=== PATIENT | female | born 1960 | race Caucasian/White ===

== ENCOUNTER 2019-10-04 12:52 | Inpatient (IN) | payer OTHER, SELFPAY ==
[2019-09-20 09:39] VITALS: BP 141/88; PULSE 73; RESP 16; TEMP 36.7; O2SAT 100; BMI 24.1
--- NOTE | 2019-10-01 15:33 | HP_ITS ---
DATE OF SERVICE: ADMIT DIAGNOSIS: Degenerative joint disease, left hip. HISTORY OF PRESENT ILLNESS: The patient is a 58-year-old female patient of Dr. oMraes , who presents today for a left total hip arthroplasty. She has been having pain in the hip for over a year now. She had a right hip done by Dr. Frey in 2017 and is doing very well. She has advanced severe arthritis of the left hip. She has continued symptoms. She has been taking [id number] anti-inflammatories either Aleve or Advil on a daily basis without improvement of her symptoms. She has reached a point where she feels she would rather proceed with total hip arthroplasty rather continuing nonsurgical treatment. PAST MEDICAL HISTORY: She does have a history of glaucoma, depression, GERD. CURRENT MEDICATIONS: She takes: 1. Bupropion XL 300 mg daily. 2. Fluoxetine 20 mg daily. 3. Omeprazole 20 mg daily. 4. Prozac 10 mg daily. 5. Wellbutrin XL 150 mg daily. ALLERGIES: SHE HAS NO KNOWN DRUG ALLERGIES. FAMILY HISTORY: Significant for skin cancer and coronary artery disease. SOCIAL HISTORY: She stopped smoking. She smoked 1 pack a day for 30 years, but has recently quit. PHYSICAL EXAMINATION: VITAL SIGNS: She is 5 feet 4.5 inch, 144 pounds. Other vital signs per nursing on the morning of surgery. HEENT: Grossly normal. LUNGS: Clear bilaterally. HEART: Regular rate and rhythm. EXTREMITIES: She walks with a mild limp. Her left hip flexes to 110, which causes her anterolateral pain radiating to the greater trochanter. Internal rotation is 0, external rotation of 30, with pain in the groin. Stinchfield maneuver causes her pain to the anterolateral hip. No tenderness over the greater trochanter. She has normal abduction strength in lateral position. No swelling in the left lower extremity. 2+ dorsalis pedis and posterior tibial pulse. IMAGING DATA: X-rays demonstrate advanced arthritis of the left hip with flattening of the femoral head and cystic changes in the femoral head and acetabular component. IMPRESSION: The patient has severe arthritis in the left hip with continued symptoms. Again, she would like to proceed with total arthroplasty. Surgical procedure as well as risks and complications were discussed. All questions were answered and we will proceed. The patient will see Dr. Moraes for presurgical clearance. The patient will avoid any aspirin, ibuprofen products 1 week prior to surgery. When we did her surgery last time, we used full aspirin and portable SCDs for DVT prophylaxis and the patient would like to do this again and she still has the SCDs. Her nasal swab did grow oxacillin-sensitive Staph aureus. She has been decolonizing as of 09/24. Chem panel is all within normal limits. Creatinine 0.90. Her cotinine was negative. Hemoglobin is 12.5, platelets are 439. D I MT: Danny
[2019-10-04] VITALS (12 sets, daily range): BP systolic 95–158; BP diastolic 49–82; PULSE 73–100; RESP 10–20; TEMP 36.2–37.2; O2SAT 93–100; BMI 24.1
--- NOTE | ~2019-10-04 | XR_ITS ---
XR surgery orthopedic 10/04/2019 11:40 Indication: Left hip arthroplasty Procedure: 2 fluoroscopic images of the left hip. 61 seconds of fluoroscopy. Comparison: No prior studies for comparison. Findings: There is a left total hip arthroplasty with the distal femoral component isn't completely v isualized. There is anatomic alignment. No gross fracture or malalignment. Impression: 1: Status post left total hip arthroplasty in anatomic alignment. Reviewed, dictated and finalized at location A. R MAKER Impression: 1: Status post left total hip arthroplasty in anatomic alignment.
--- NOTE | ~2019-10-04 | XR_ITS ---
EXAMINATION: XR hip LT 1V w AP pelvis DATE: 10/04/2019 11:40 INDICATION: Left hip arthroplasty. Postop. TECHNIQUE: An anteroposterior view of the pelvis and single view of left hip were obtained. COMPARISON: Pelvis and right hip radiographs 07/09/2017 FINDINGS: There are bilateral total hip arthroplasties in near-anatomic alignment. No fracture. There is gas in the left perihilar soft tissues, consistent with recent surgery. A surgical drain is noted . IMPRESSION: 1. New total left hip arthroplasty in near-anatomic alignment. Reviewed, dictated and finalized at location A. NT SUPPORT ASSOCIATE
[2019-10-04] MEDS: LACTATED RINGERS 1,000 ML 30 ML IV CONT ×2 (07:10→11:42)
--- NOTE | 2019-10-04 07:15 | WPDANESEPPF ---
Anes - Initial Pre Proc Eval Procedure: Operation Date: 10/04/19 07:30 Proposed Procedures p Left Total Hip Arthroplasty, Anterior Approach - Shaw Frey MD Date/Time: 10/04/19 07:15 Surgeon: Shaw Frey MD Pre Op Diagnosis: OA Left Hip Patient Data Age: 58 Gender: F Height: 1.65 m Weight: 65.8 kg Last Vital Signs Temp 36.7 C 09/20/19 09:39 Pulse 73 09/20/19 09:39 Resp 16 09/20/19 09:39 BP 141/88 H 09/20/19 09:39 Pulse Ox 100 09/20/19 09:39 Allergies Allergy/AdvReac Type Severity Reaction Status Date / Time No Known Drug Allergies Allergy Unknown NONE Verified 09/20/19 09:33 Home Medications Medication Instructions Recorded Confirmed Type bupropion HCl 300 mg PO QAM 09/20/19 09/20/19 History calcium carbonate-vitamin D3 1 cap PO DAILY 09/20/19 09/20/19 History [Calcium 600 + D(3)] fluoxetine 20 mg PO DAILY 09/20/19 09/20/19 History ibuprofen 400 mg PO Q4-6H PRN 09/20/19 09/20/19 History latanoprost 1 drp OPHTHALMIC (EYE) DAILY 09/20/19 09/20/19 History multivitamin [Daily Multiple] 1 tablet PO DAILY 09/20/19 09/20/19 History Patient hx anesthesia problems: none Family hx anesthesia problems: none PMFSH Past Medical History Medical History (Updated 10/04/19 @ 07:16 by Jimy Trevino MD) Anxiety Depression Glaucoma Social History Social History Gender identity (if verbalized by the patient): Female Anes - Eval Final PreProcedure Day of Procedure 10/04/19 07:15 Patient weight: normal Heart: regular rate and rhythm Lungs: clear to auscultation and normal air movement Airway: Mallampati scale class II Neurological: alert and oriented Last oral intake: >/= 8 hours ASA classification: II Emergent: no Anesthetic plan: proceed Anesthesia type and monitoring: general LMA and ETT Informed Consent: The patient's anesthetic plan and its attendant risks and benefits were discussed with the patient/family/POA. Questions were solicited and answers provided to the satisfaction of the patient/family/POA.
--- NOTE | 2019-10-04 07:24 | WPDHPUPDATE1 ---
History and Physical Update Update Date/Time: 10/04/19 07:24 History and Physical has been reviewed, including an updated exam of the patient. There are NO changes in the patient's condition. Risks, benefits, and alternatives have been discussed and questions answered. Patient agrees to proceed with procedure.
[2019-10-04] MEDS: ceFAZolin 2 GM/D5W 50 ML 2 GM/50 ML BAG IVPB (07:40)
[2019-10-04] MEDS: ceFAZolin SODIUM 1 GM VIAL 3 GM IRRIGATION (08:30)
[2019-10-04] MEDS: ceFAZolin SODIUM 1 GM VIAL IV PUSH (11:08)
--- NOTE | 2019-10-04 11:54 | PM.PROC ---
Procedure Note - Detailed Date of procedure: 10/04/19 Pre-op diagnosis: OA Left Hip Post-op diagnosis: same Procedure performed: Patient brought the operating room and general anesthesia was administered. the left hip was prepped and draped in usual fashion after per seated in position on the OSI Araceli table boots well-padded. She received 2 g of Ancef weight based vancomycin 1 g of IV tranexamic acid preoperatively. SCDs were placed on the legs and running. A 10 cm longitudinal incision was made starting about 3 cm lateral to the ASIS. Dissection was carried down to the fascia over the tensor fascia ponhco which was longitudinally incised and elevated off the anterior 1/2 the tensor fascia poncho muscle. Interval between the rectus femoris and tensor fascia poncho developed. Crossing branches of the ascending lateral circumflex vessels were isolated ligated with suture divided. ileal capsular S elevated off the anterior capsule retractor placed. The leg abducted internally rotated and the gluteus minimus elevated off the lateral capsule. leg was placed back in neutral position and standard anterior capsulotomy performed femoral neck osteotomy was made according to preoperative templating. A napkin ring of bone was removed and the head removed. fit measured 46 mm in diameter. It was severely hypertrophic. The acetabulum was and inspected. There was some deficiency of the posterior superior acetabular rim. I did not see fragmentation there was apparent resorption there. Also there were 2 1 cm cyst communicating with the subchondral bone in the joint in the anterior superior acetabulum. these were curetted. The labrum was excised. the leg was externally rotated and extended and the lateral capsular release was completed. Conjoined tendon was recessed just lateral to the osteotomy. The piriformis was left attached. The leg was placed in the neutral position. the acetabulum was carefully prepared. We medial eyes to the medial wall and reamed to 47 mm. This did not quite get to the periphery of the 48 mm Reamer was used. the 48 trial had acceptable fit. we medial eyes and superior eyes the acetabulum a few mm deeper with the 47 mm Reamer. The bone present was of very good quality. We chose the G 748 mm cup and impacted that such that the anterior rim was a mm into the anterior wall. This left the posterior superior rim about 67 mm prominent but obtained a good press fit. a single screw was placed and the superior ilium which obtained excellent purchase. We used extra long screw to enhance fixation. I did not think the screws posterior would gain much fixation in the small area of bone present there. The insertion hole cap was placed and we impacted the 48 mm 0? liner 32 mm inner diameter. The leg was extended externally rotated and we broached up to a size 6 the size we used on the other side. Preoperative templating suggested that the size would be a bit larger and indeed under fluoroscopic examination with the +0 head we were little bit loose put we had equal leg lengths at this time. I felt we could go up in size. We calcar planed the neck to that level and went up to a size 8 taper lock broach which we could countersink about 2 and 0.5 mm below the neck cut. We trialed with the +3 which had appropriate stability and appropriate leg lengths perhaps a mm short. We anticipated the real stem would sit little bit proud. We chose the standard offset size 8 taper lock stem and impacted it into position and a came to rest about a 0.5 mm below the calcar neck cut. I trialed and the 0 was too loose but the +3 was stable and the leg lengths were very close perhaps length in 2 mm or 3. The +3 titanium sleeve was mated with the 32 mm ceramic head which was impacted on the clean and dry trunnion. The wound was again irrigated with antibiotic solution. Gloves were changed multiple times for the procedure hip was reduced stability reconfirmed. The capsule was allowed to rest in sit
--- NOTE | 2019-10-04 12:39 | SUR.PHASEI ---
1235 updated family in waiting room.
--- NOTE | 2019-10-04 13:03 | ADMGEN ---
This patient, Adele Jaffe, was admitted to 3 Med Surg Room 310-01 @ 1303. Patient/family oriented to hospital policies and general routines including ID bracelet, bed and alarms, visiting hours, pain management, procedures, bathroom and other care routines, personal items, smoking policy, room service/diet, and visiting hours. Valuables list has been completed. Information on how to activate the Rapid Response Team has been discussed. Patient/Family are encouraged to report perceived risks to care and to ask questions if they do not understand what they are told or what they should do.
[2019-10-04 13:18] LABS: Hematocrit 32.1 % (37.0-47.0); Hemoglobin 10.5 g/dL (12.0-15.0)
[2019-10-04] MEDS: ACETAMINOPHEN 500 MG TABLET 1000 MG PO ×2 (13:26→18:05)
--- NOTE | 2019-10-04 20:00 | WPDCN ---
Assessment and Plan Assessment and plan (1) Osteoarthritis of left hip: Code(s): M16.12 - Unilateral primary osteoarthritis, left hip Status: Acute Assessment and Plan: Wound care and pain control will be deferred to Dr. Frey. DVT prophylaxis per Dr. Frey. (2) Depression with anxiety: Code(s): F41.8 - Other specified anxiety disorders Status: Acute Assessment and Plan: No acute issues. Continue home medications. (3) Glaucoma: Code(s): H40.9 - Unspecified glaucoma Status: Acute Assessment and Plan: Continue eyedrops. HPI Data of Consult Date/Time: 10/04/19 23:00 Requesting Physician: Shaw Frey MD Primary Care Provider: Marin Moraes, Consult Narrative Narrative: Adele Jaffe is a 58 year old female with osteoarthritis, glaucoma, depression, and anxiety whom the hospitalist service has been consulted for postoperative medical management. She has osteoarthritis of both hips, is status post right total hip arthroplasty a couple of years ago with good results. Unfortunately, she continues to have pain in her left hip despite conservative outpatient treatment. Her surgery was performed under general anesthesia with no immediate complications documented an estimated blood loss of 300 milliliters. Postoperatively, her pain is well controlled, rated 2/10 at the time my evaluation. She has been up to the chair and walking the halls with a walker, and has been doing well. The only complaint she has at the time my evaluation is some mild sinus congestion and postnasal drip. She denies fever, chills, sweats, chest pain, shortness of breath, nausea, and vomiting. No paresthesias, skin color, or temperature changes distal to the surgical site. Review of Systems Review of Systems: Narrative: No recent cold or flu symptoms. No chest pain or shortness of breath. No history of cardiac disease. No history of venous thromboembolism. Except as documented, all other systems were reviewed and are negative. [facility] Past Medical History Medical History (Updated 10/04/19 @ 23:12 by Yvonne Mccarthy PA-C) Depression with anxiety GERD (gastroesophageal reflux disease) Glaucoma Osteoarthritis Surgical History Surgical History (Updated 10/04/19 @ 23:10 by Yvonne Mccarthy PA-C) Status post right foot surgery Status post total replacement of both hips Family History Family History (Updated 10/04/19 @ 23:11 by Yvonne Mccarthy PA-C) Father Melanoma Mother Arrhythmia Social History Social History (Updated 10/04/19 @ 23:11 by Yvonne Mccarthy PA-C) Social History: Patient lives in [place] with her , whom she designates as her surrogate decision maker. 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 She smoked up to a pack of cigarettes per day and quit 7 years ago. She drinks alcohol socially and in moderation. No drug use. Smoking packs per day: 1 Smoking cigarettes per day: 20.0 Smoking status: Former smoker Alcohol intake: current Drinks per week: 4 Substance use: never Gender identity (if verbalized by the patient): Female Spiritual care concerns: No Agree to blood products: Yes Meds Home Medications and Allergies Home Medications Medication Instructions Recorded Confirmed Type bupropion HCl 300 mg PO QAM 09/20/19 09/20/19 History calcium carbonate-vitamin D3 1 cap PO DAILY 09/20/19 09/20/19 History [Calcium 600 + D(3)] fluoxetine 20 mg PO DAILY 09/20/19 09/20/19 History ibuprofen 400 mg PO Q4-6H PRN 09/20/19 09/20/19 History latanoprost 1 drp OPHTHALMIC (EYE) DAILY 09/20/19 09/20/19 History multivitamin [Daily Multiple] 1 tablet PO DAILY 09/20/19 09/20/19 History Allergies Allergy/AdvReac Type Severity Reaction Status Date / Time No Known Drug Allergies Allergy Unknown NONE Verified 09/20/19 09:33 Vital Signs Vital Signs - 24 hr 10/04/19 07:00 10/04/19
[2019-10-04] MEDS: ASPIRIN 325 MG ENTERIC TABLET PO (21:12)
[2019-10-04] MEDS: SENNA/DOCUSATE SODIUM TABLET 1 TAB PO (21:12)
[2019-10-04] MEDS: FAMOTIDINE 20 MG TABLET PO (21:12)
[2019-10-05] MEDS: ACETAMINOPHEN 500 MG TABLET 1000 MG PO ×2 (00:03→05:13)
[2019-10-05 02:00] VITALS: BP 113/67; PULSE 97; RESP 16; TEMP 37.1; O2SAT 97
[2019-10-05] MEDS: MORPHINE SULFATE 2 MG/ML INJ IV PUSH (05:23)
--- NOTE | 2019-10-05 06:16 | PM.PNORT ---
Progress Note: A&P Additional Plan POD 1 alert avss, wd-dry NVI, was walking in halls yesterday 50% WB , doing well, having more pain overnight and this am, labs-pending, pt is taking 2 pain pills at a time, will get celebrex this am which will help, plan to send home later today Subjective Subjective Date/Time Seen: 10/05/19 06:16 Objective Data Vital Signs Vital Signs: Vital Signs - 24 hr 10/04/19 07:00 10/04/19 11:42 10/04/19 11:55 Temperature 36.8 C 36.5 C Pulse Rate 100 81 82 Respiratory Rate 18 14 12 Blood Pressure 158/82 H 100/52 L 104/61 Pulse Oximetry 100 100 100 10/04/19 12:10 10/04/19 12:26 10/04/19 12:40 Temperature Pulse Rate 81 77 84 Respiratory Rate 14 10 L 13 Blood Pressure 106/76 95/49 L 122/68 Pulse Oximetry 93 98 98 10/04/19 13:00 10/04/19 13:15 10/04/19 13:45 Temperature 36.2 C L 36.4 C L Pulse Rate 77 73 76 Respiratory Rate 17 17 19 Blood Pressure 118/55 L 113/50 L 106/53 L Pulse Oximetry 100 100 99 10/04/19 14:45 10/04/19 18:40 10/04/19 22:00 Temperature 36.3 C L 36.9 C 37.2 C Pulse Rate 75 86 75 Respiratory Rate 16 19 20 Blood Pressure 111/60 117/51 L 113/59 L Pulse Oximetry 100 100 100 10/05/19 02:00 Temperature 37.1 C Pulse Rate 97 Respiratory Rate 16 Blood Pressure 113/67 Pulse Oximetry 97 Intake/Output Intake/Output: Intake & Output 10/02/19 10/03/19 10/04/19 10/05/19 23:59 23:59 23:59 23:59 Intake Total 770 200 Output Total 1050 1800 Balance -280 -1600 Meds/Results Medications: Active Medications Generic Name Dose Route Start Last Admin Trade Name Freq PRN Reason Stop Dose Admin Acetaminophen 1,000 mg 10/04/19 13:00 10/05/19 05:13 Tylenol Tablet PO 1,000 mg Q6HR POLLO Administration Al Hydrox/Mg Hydrox/Simethicone 30 ml 10/04/19 12:52 Mylanta PO Q6H PRN Indigestion Aspirin 325 mg 10/04/19 21:00 10/04/19 21:12 Aspirin Ec PO 325 mg Q12HR [facility] Administration Bupropion HCl 300 mg 10/05/19 09:00 Wellbutrin Xl (24 Hr) PO QAM [facility] Calcium Carbonate 500 mg 10/05/19 09:00 Os-Ashutosh 500 +D Tablet PO QAM [facility] Celecoxib 200 mg 10/05/19 09:00 Celebrex PO DAILY [facility] Famotidine 20 mg 10/04/19 21:00 10/04/19 21:12 Pepcid PO 20 mg Q12HR [facility] Administration Fluoxetine HCl 20 mg 10/05/19 09:00 Prozac PO DAILY [facility] Hydroxyzine HCl 50 mg 10/04/19 12:52 Atarax Tablet PO Q4H PRN Itching Vancomycin HCl 1,000 mg in 250 mls @ 250 mls/hr 10/04/19 19:00 10/04/19 19:23 Vancomycin 1,000 Mg/D5w 250 Ml IVPB 10/05/19 07:59 Infused Q12H [facility] Infusion Cefazolin Sodium 1 gm in 50 mls @ 100 mls/hr 10/04/19 16:00 10/05/19 00:03 Ancef 1 Gm/D5w 50 Ml Pm IVPB 10/05/19 08:29 100 mls/hr Q8H [facility] Administration Latanoprost 1 drop 10/05/19 09:00 Xalatan EACH EYE DAILY [facility] Magnesium Hydroxide 30 ml 10/04/19 12:52 Milk Of Magnesia PO BID PRN Constipation Morphine Sulfate 2 mg 10/04/19 12:52 10/05/19 05:23 Morphine Sulfate Inj IV PUSH 2 mg Q3H PRN Administration Pain Rated 7-10 Multivitamins Therapeutic 1 tablet 10/05/19 09:00 Multivitamins Therapeutic(*Bkc PO DAILY [facility] Naloxone HCl 0.1 mg 10/04/19 12:52 Narcan IV PUSH Q2M PRN Opiate Reversal Ondansetron HCl 4 mg 10/04/19 12:52 Zofran Inj IV PUSH Q4H PRN Nausea And Vomiting Oxycodone HCl 5 mg 10/04/19 13:00 10/05/19 04:30 Roxicodone Ir Tablet PO 5 mg Q4HR POLLO Administration Oxycodone HCl 5 mg 10/04/19 12:52 10/05/19 04:31 Roxicodone Ir Tablet PO 5 mg Q4H PRN Administration Pain Rated 4-6 Polyethylene Glycol 17 gm 10/05/19 09:00 Miralax PO QAM POLLO Senna/Docusate Sodium 1 tab 10/04/19 21:00 10/04/19 21:12 Senokot S PO 1 tab HS POLLO Administration Radiology Results: ITS Impressions Hip/Pelvis X-Ray 10/04/19 12:16 IMPRESSION: 1. New total left h
[2019-10-05 06:29] VITALS: BP 124/63; PULSE 90; RESP 20; TEMP 36.8; O2SAT 100
[2019-10-05 07:02] LABS: Blood Urea Nitrogen 12 mg/dL (7-17); Carbon Dioxide 27 mmol/L (22-30); Chloride 97 mmol/L (98-107); Estimated CRCL calculation 67 ml/min; Estimated Glomerular Filt Rate > 60; Glucose 103 mg/dL (65-105); Potassium 3.8 mmol/L (3.4-5.0); Sodium 133 mmol/L (137-145)
[2019-10-05] MEDS: buPROPion HCL XL (24 HR) 150 MG TABCR 300 MG PO (08:11)
[2019-10-05] MEDS: FAMOTIDINE 20 MG TABLET PO (08:11)
[2019-10-05] MEDS: CELECOXIB 200 MG CAPSULE PO (08:11)
[2019-10-05] MEDS: FLUOXETINE HCL 20 MG CAP PO (08:11)
[2019-10-05] MEDS: polyethylene glycoL 3350 17 GM POWD.PACK PO (08:11)
[2019-10-05] MEDS: LATANOPROST 0.005% OP SOLN 2.5 ML BTL 1 DROP EACH EYE (08:12)
[2019-10-05] MEDS: MULTIVITAMINS THERAPEUTIC TAB (*BKC) 1 TABLET PO (08:12)
[2019-10-05] MEDS: ASPIRIN 325 MG ENTERIC TABLET PO (09:26)
--- NOTE | 2019-10-05 09:34 | P.PNAN_ITS ---
Anes - Prog Note Post-Op Date/Time: 10/05/19 09:34 Cardiovascular status: normal Respiratory status: normal Airway patency: baseline Mental status: baseline Post-Op hydration status: normal Vital Signs: Last Vital Signs Temp 36.8 C 10/05/19 06:29 Pulse 90 10/05/19 06:29 Resp 20 10/05/19 06:29 BP 124/63 10/05/19 06:29 Pulse Ox 100 10/05/19 06:29 I/O: Intake & Output 10/04/19 10/05/19 10/05/19 23:59 07:59 15:59 Intake Total 420 200 50 Output Total 350 1800 Balance 70 -1600 50 Laboratory Tests 10/05/19 05:40 10/04/19 10/05/19 10/05/19 13:11 05:40 05:40 WBC Pending RBC Pending Hgb 10.5 L Pending Hct 32.1 L Pending MCV Pending MCH Pending MCHC Pending RDW Pending Plt Count Pending MPV Pending Immature Gran % (Auto) Pending Neut % (Auto) Pending Lymph % (Auto) Pending [place] % (Auto) Pending Eos % (Auto) Pending Baso % (Auto) Pending Lymph # (Auto) Pending [place] # (Auto) Pending Eos # (Auto) Pending Baso # (Auto) Pending Abs Immat Gran (auto) Pending Absolute Neuts (auto) Pending Absolute Nucleated RBC Pending Nucleated RBC % Pending Sodium 133 L Potassium 3.8 Chloride 97 L Carbon Dioxide 27 BUN 12 D Creatinine 0.70 Estim Creat Clear Calc 67 Estimated GFR > 60 Glucose 103 Calcium 9.0 Post-procedural complaints: none Patient Feedback: Patient satisfied with anesthetic care.
--- NOTE | 2019-10-05 09:45 | PM.IMPN ---
Progress Note: A&P Assessment and Plan (1) Osteoarthritis of left hip: Code(s): M16.12 - Unilateral primary osteoarthritis, left hip Status: Acute Assessment and Plan: POD1 left hip replacement. Patient doing well Post-operatively. Patient possibly discharged today per Dr. Frey Wound care, post op, DVT and pain controlwill be deferred to Dr. Frey. (2) Depression with anxiety: Code(s): F41.8 - Other specified anxiety disorders Status: Acute Assessment and Plan: No acute issues. Continue home medications. (3) Glaucoma: Code(s): H40.9 - Unspecified glaucoma Status: Acute Assessment and Plan: No acute issues Continue eyedrops. Subjective Date/time seen: 10/05/19 09:45 This is a Hospitalist Consult Progress Note Interval history: Patient is a 58 yo F with history of depression/anxiety, GERD, glaucoma, and OA POD1 left hip replacement per Dr. Weir. Patient is doing well post operatively. She had some pain this morning in her left hip and lower leg, but has since improved. Did well with PT/OT today. No other complaints. Ready to leave to day. Patient denies f/c/ns, headaches, dizziness, lightheadedness, changes in vision/hearing, cp/palpitations, sob/cough, abd pain, n/v/d/c, dysphagia, dysuria, hematuria, cloudy urine, pain behind b/l calves, swelling, s/sx of stroke. Review of Systems Review of Systems: All systems reviewed & are unremarkable except as noted in HPI and below Exam Narrative: Exam Narrative: Patient lying in semi-mcclendon's position at time of visit. Just finished PT/OT session. Const: General: no acute distress, well developed and alert Nutritional Appearance: well nourished Orientation/consciousness: patient oriented x3 HENMT: Head: normocephalic and atraumatic General nose exam: Normal external nose present and Normal nares present Face and sinus: face symmetric Mouth: Yes lip normal, Yes tongue normal and Yes moist mucous membranes Teeth and gingiva: dentition normal Throat: posterior oropharynx normal Eyes: General: appearance normal, both eyes and all related structures Sclera: sclerae normal Pupils: Equal, round and reactive pupils present EOM: EOMs intact bilaterally Neck: Neck: trachea midline, supple and no JVD Resp: Effort & Inspection: normal respiratory effort Auscultation: clear to auscultation bilaterally and diminished lung sounds Cardio: Rate: regular rate and not bradycardic Rhythm: regular rhythm Heart sounds: no gallops, no murmurs and no rubs GI: Inspection: non-distended GI Palp: No abdominal tenderness Auscultation: normal bowel sounds Neuro: General: patient oriented x3, moves all extremities and no focal motor deficits Speech: normal speech Extrem: Right lower extremity: no edema Left lower extremity: no edema Other: No calf ttp/swelling. Left hip incision sites bandaged with ice pack. no drainage noted Psych: Mental Status: mental status grossly normal Affect: normal affect Objective Data Vital Signs Vital Signs: Vital Signs - 24 hr 10/04/19 11:42 10/04/19 11:55 10/04/19 12:10 Temperature 97.7 F Pulse Rate 81 82 81 Respiratory Rate 14 12 14 Blood Pressure 100/52 L 104/61 106/76 Pulse Oximetry 100 100 93 10/04/19 12:26 10/04/19 12:40 10/04/19 13:00 Temperature 97.1 F L Pulse Rate 77 84 77 Respiratory Rate 10 L 13 17 Blood Pressure 95/49 L 122/68 118/55 L Pulse Oximetry 98 98 100 10/04/19 13:15 10/04/19 13:45 10/04/19 14:45 Temperature 97.5 F L 97.3 F L Pulse Rate 73 76 75 Respiratory Rate 17 19 16 Blood Pressure 113/50 L 106/53 L 111/60 Pulse Oximetry 100 99 100 10/04/19 18:40 10/04/19 22:00 10/05/19 02:00 Temperature 98.5 F 99 F 98.7 F Pulse Rate 86 75 97 Respiratory Rate 19 20 16 Blood Pressure 117/51 L 113/59 L 113/67 Pulse Oximetry 100
--- NOTE | 2019-10-05 10:23 | DS_ITS ---
DATE OF DISCHARGE: 10/05/2019 DIAGNOSIS: Degenerative joint disease, left hip. HOSPITAL COURSE: The patient is a 58-year-old female who underwent anterior left total hip arthroplasty by Dr. Frey on October 04, 2019, who underwent the procedure without any complications. Postoperatively, she has been afebrile. Vital signs have been stable. Neurovascularly, she was intact. She was up walking on the day of surgery. She is 50% weightbearing due to some bone deficiencies in the acetabular bone. She did well; however, the block from surgery wore off. She is having increasing pain. She is on oxycodone, scheduled Tylenol, and Celebrex once a day for pain. She is on aspirin and portable SCDs for DVT prophylaxis postoperatively. Her drain is out. She had minimal output in the drain overnight. Wound is dry. Neurovascularly, she is intact. She is comfortable on postop day 1. We will see how she does with therapy today. The plan will be to discharge her home later today on October 05, 2019. She will go home on a regular diet. Again, she will use her SCDs for 24 hours a day for 3 weeks. She will be on an enteric-coated aspirin twice a day for 6 weeks total. The patient was advised to keep the leg elevated and which she was reminded multiple times when I spoke to her on the morning postop day 1 that she needs to be 50% weightbearing with a walker for the 1st month. If any questions or concerns, she should call the office; otherwise, see her at appointed date. At the time of discharge, morning labs were not completed yet. We will check on these prior to discharge. Barber Sal MT: Danny
== END 2019-10-05 10:45 | disposition home or self-care (01) | DRG 470 ==
LOC: ANH3MEDSUR 12:54
PROVIDERS: Physician Assistant Surgical; Admitting Provider Orthopaedic Surgery; PCP Internal Medicine; Visit Provider Orthopaedic Surgery
PROC: 0SRB02A Replacement of Left Hip Joint with Metal on Polyethylene Synthetic Substitute, Uncemented, Open Approach (ICD-10-PCS; CPT 27130; principal; 2019-10-04 07:30)
DX: M16.12 Unilateral primary osteoarthritis, left hip (principal); H40.9 Unspecified glaucoma; F41.8 Other specified anxiety disorders; K21.9 Gastro-esophageal reflux disease without esophagitis; Z87.891 Personal history of nicotine dependence; Z96.641 Presence of right artificial hip joint
CPT/HCPCS: 36415; 73501; 76000; 80048; 85014; 85018; 86850; 86900; 86901; 97110; 97116; 97161; 97165; 97530; 97535; A9270; C1776; J0131; J0171; J0360; J0690; J1100; J1170; J1885; J2250; J2270; J2405; J2704; J2710; J2795; J3010; J3370; J7120

== ENCOUNTER 2021-06-14 10:28 | Outpatient (CLI) | payer OTHER, SELFPAY ==
--- NOTE | 2021-06-14 10:30 | ECG_ITS ---
Measurements Intervals [place] Rate: 71 P: 53 ND: 154 QRS: 57 QRSD: 109 T: 60 QT: 405 QTc: 441 Interpretive Statements SINUS RHYTHM POSSIBLE LEFT ATRIAL ENLARGEMENT INCOMPLETE RIGHT BUNDLE BRANCH BLOCK DELAYED PRECORDIAL R/S TRANSITION BORDERLINE ECG Electronically Signed On 06-14-2021 10:58:06 CDT by Mik Joshua D.O.
== END 2021-06-14 10:29 | disposition home or self-care (01) ==
LOC: ANHSURGERY 10:34
PROVIDERS: PCP Internal Medicine; Visit Provider Surgery Plastic and Reconstructive Surgery
DX: Z87.891 Personal history of nicotine dependence (principal); I45.10 Unspecified right bundle-branch block
CPT/HCPCS: 93005

== ENCOUNTER 2021-06-19 00:55 | Day surgery (SDC) | payer OTHER, SELFPAY ==
[2021-06-12 08:35] VITALS: BMI 25.7
[2021-06-19] VITALS (10 sets, daily range): BP systolic 113–146; BP diastolic 59–86; PULSE 71–97; RESP 12–19; TEMP 36.3–36.9; O2SAT 93–100
[2021-06-19] MEDS: LACTATED RINGERS 1,000 ML 30 ML IV CONT ×2 (06:55→12:05)
[2021-06-19 06:59] LABS: Urine Cotinine NEGATIVE
--- NOTE | 2021-06-19 07:01 | WPDHPUPDATE1 ---
History and Physical Update Update Date/Time: 06/19/21 07:01 History and Physical has been reviewed, including an updated exam of the patient. There are NO changes in the patient's condition. Risks, benefits, and alternatives have been discussed and questions answered. Patient agrees to proceed with procedure.
--- NOTE | 2021-06-19 07:10 | WPDANESEPPF ---
Anes - Initial Pre Proc Eval Procedure: Operation Date: 06/19/21 07:30 Proposed Procedures p Face And Neck Lift With Facial Fat Grafting - Jalen Christopher MD Date/Time: 06/19/21 07:10 Surgeon: Jalen Christopher MD Pre Op Diagnosis: skin laxity Patient Data Age: 60 Gender: F Height: 1.65 m Weight: 64.7 kg Last Vital Signs Temp 98.1 F 06/19/21 06:35 Pulse 86 06/19/21 06:35 Resp 18 06/19/21 06:35 BP 143/71 H 06/19/21 06:35 Pulse Ox 100 06/19/21 06:35 Allergies Allergy/AdvReac Type Severity Reaction Status Date / Time No Known Allergies Allergy Verified 06/19/21 07:02 Home Medications Medication Instructions Recorded Confirmed Type Calcium 600 + D(3) 1 cap PO DAILY 09/20/19 06/19/21 History bupropion HCl 300 mg PO DAILY 09/20/19 06/19/21 History fluoxetine 20 mg PO DAILY 09/20/19 06/19/21 History latanoprost 1 drp OPHTHALMIC (EYE) DAILY 09/20/19 06/19/21 History multivitamin [Daily Multiple] 1 tablet PO DAILY 09/20/19 06/19/21 History polyethylene glycol 3350 [Miralax] 17 g PO QAM #30 ea 10/05/19 06/19/21 Rx sennosides-docusate sodium 1 tab PO HS #60 tablet 10/05/19 06/19/21 Rx [Senokot-S] diazepam 5 mg tablet 5 mg PO TID PRN #15 tablet 06/05/21 06/19/21 Rx hydrocodone 5 mg-acetaminophen 325 1 tablet PO Q6H PRN #15 tablet 06/05/21 06/19/21 Rx mg tablet ondansetron HCl 4 mg tablet 4 mg PO Q8H #21 tablet 06/05/21 06/19/21 Rx fluticasone propionate [Flonase] 1 spray INTRANASAL DAILY 06/12/21 06/19/21 History omeprazole 20 mg PO DAILY 06/12/21 06/19/21 History Laboratory Tests 06/19/21 06:30 Cotinine Negative Patient hx anesthesia problems: none Family hx anesthesia problems: none Results Review: All pre-operative results and documents have been reviewed as part of the pre-operative evaluation. [facility] Past Medical History Medical History Depression with anxiety GERD (gastroesophageal reflux disease) Glaucoma Osteoarthritis Surgical History Surgical History Status post right foot surgery Status post total replacement of both hips Family History Family History Father Melanoma Mother Arrhythmia Social History Social History Social History: Patient lives in [place] with her , whom she designates as her surrogate decision maker. 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 She smoked up to a pack of cigarettes per day and quit 7 years ago. She drinks alcohol socially and in moderation. No drug use. Smoking packs per day: 1 Smoking cigarettes per day: 20.0 Years smoked: 20 Smoking pack-years: 20.00 Smoking status: Former smoker Smoking end date: 09/08/10 Alcohol intake: current Drinks per week: 4 Alcohol use details: 2 BOTTLES OF WINE/WEEK IN SUMMER Substance use: never Substance use type: does not use Living arrangements: with family Gender identity (if verbalized by the patient): Female Spiritual care concerns: No Agree to blood products: Yes Anes - Eval Final PreProcedure Day of Procedure 06/19/21 07:10 Patient weight: normal Heart: regular rate and rhythm Lungs: clear to auscultation Airway: Mallampati scale class II Neurological: alert and oriented Last oral intake: >/= 8 hours ASA classification: II Emergent: no Anesthetic plan: proceed Anesthesia type and monitoring: general GIVS and standard monitoring Results Review: All pre-operative results and documents have been reviewed as part of the pre-operative evaluation. Informed Consent: The patient's anesthetic plan and its attendant risks and benefits were discussed with the patient/family/POA. Questions were solicited and answers provided to the satisfaction of the patient/family/POA.
--- NOTE | 2021-06-19 07:14 | P.OP_ITS ---
Procedure Note - Detailed Date of Procedure 06/19/21 Pre-op Diagnosis skin laxity Post-op Diagnosis same Procedure Performed Face and neck lift with facial fat grafting Surgeon Jalen Christopher MD Anesthesia general Description of Procedure Preoperatively the risks, benefits, alternatives were discussed in extensive detail. I want her to be very realistic about the risks involved as well as expectations. Made sure answered all of her questions are satisfaction. Consent was obtained. Patient was taken to the operating room placed supine on the operating room table. Anesthesia was provided by anesthesiology and prepped and draped in a standard sterile fashion. Surgical time-out was taken. I did a thorough abdominal examination. Stab incision was made I completed suction lipectomy using a 3 mm multi hole cannula. This was into a gravity separation device we gave adequate time for gravity sep aration. Once we had the central adipose tissue reviewed moving the inferior and superior aspect this was placed into 1 cc syringes for injection. While waiting for separation I tumesced the face / neck using a tumescent solution on a spinal needle. Next I fat grafting. This was through 18 guage stab incisions using a 0.8-1.2mm blunt tip canula. This was completed based on her preoperative planning and intraoperative observations. Fifteen blade used to make a submental incision. Dissection was continued down until the platysma was identified. All skin flaps were left with even adipose tissue remaining of the skin flaps to protect viability as well as protect contour. I also elevated deep to the platysma and removed any sub platysmal fat. The platysma was plicated in a vertical mattress fashion using 2-0 Vicryl. I did release transversely just below the thyroid cartilage. Fifteen blade used to make the facelift incisions. I elevated the skin flaps with good viable adipose tissue on the flap protect vascularity as well as provide good contour. This communicated with the neck with good wide undermining in order have good visualization and relief is of her soft tissue. Inferior posterior to the mandibular angle I created a platysmal window. This was sutured to the mastoid fascia using 2-0 Vicryl bilateral. I then completed SMAS plication using 2-0 Vicryl in multiple passes in a vertical suture fashion. Copious irrigated with saline solution. Verified strict hemostasis. I did place bilateral 10 Jake drains 1 deep to the obtuse submental platysma 1 subcutaneously. These were brought out postauricular and sutured in place with 4-0 Vicryl. Tailor tacked the skin into place. Verified the positioning. Trimmed as necessary. Closed using combination of rafael, 5 0 nylon, and 5 0 chromic and rafael. Submental closed with 3-0 Monocryl, 4-0 Monocryl, and glue. Dressings were placed. She was awoke and taken to the PACU without difficulty. All instrument sponge counts were correct at the end of the case. Estimated Blood Loss 30 Drains Yes (bilateral 10mm jake) Packing No Pathology none sent Complications No immediate complications Condition stable Disposition PACU
[2021-06-19] MEDS: ceFAZolin 2 GM/D5W 50 ML 2 GM/50 ML BAG IVPB (07:24)
[2021-06-19] MEDS: TRANEXAMIC ACID 1,000MG/ISO100 1,000 MG/100 ML BAG 200 MG IVPB (11:17)
[2021-06-19] MEDS: ceFAZolin SODIUM 1 GM VIAL IV PUSH (11:33)
--- NOTE | 2021-06-19 12:36 | SUR.PHASEI ---
1230 - dr. mills at bedside assessing pt's swelling.
--- NOTE | 2021-06-19 13:42 | PC.NURSE ---
This patient, Adele Jaffe, was received from PACU on 06/19/21 at 1322. Patient oriented to unit policies and routines
[2021-06-19] MEDS: LACTATED RINGERS 1,000 ML 125 ML IV CONT (13:55)
[2021-06-19] MEDS: MORPHINE SULFATE (*CRX) 2 MG/ML INJ IV PUSH ×3 (13:55→22:29)
[2021-06-19] MEDS: oxyCODONE/ACETAMINOPHEN (*CRX) 5-325 MG TABLET PO (18:47)
[2021-06-19] MEDS: diazePAM (*CRX) 5 MG TABLET PO (22:29)
[2021-06-19] MEDS: SENNA/DOCUSATE SODIUM TABLET 1 TAB PO (22:30)
[2021-06-20 00:15] VITALS: BP 138/58; PULSE 59; RESP 18; TEMP 36.5; O2SAT 100
[2021-06-20] MEDS: oxyCODONE/ACETAMINOPHEN (*CRX) 5-325 MG TABLET PO ×2 (00:17→07:31)
[2021-06-20 04:30] VITALS: BP 122/64; PULSE 68; RESP 18; TEMP 36.8; O2SAT 98
--- NOTE | 2021-06-20 06:46 | WPDPN ---
Progress Note: A&P Assessment and Plan (1) Encounter for cosmetic surgery: Code(s): Z41.1 - Encounter for cosmetic surgery Status: Acute Assessment and Plan: She is doing well after face/neck lift with facial fat grafting. Will discharge home. Follow-up Friday. Call with any questions or concerns. Today we had a more than 25 minutes conversation about the care. What monitor for. This was a lengthy open-ended conversation making sure she was well informed. She understands when to dial 911/ proceed emergency room. She will call with any questions or concerns, otherwise we will see her back on Friday Time Spent With Patient Time with patient: 25 - 35 minutes Subjective Date/time seen: 06/20/21 06:46 Overnight she had a little bit of discomfort however slept well. Today she is doing well. No fevers or chills. No nausea vomiting. No shortness of breath. No chest pain. No calf tenderness. She is already very happy with the results she is seeing. Review of Systems Review of Systems: All systems reviewed & are unremarkable except as noted in HPI and below Exam Narrative: Alert and oriented no obvious distress Cranial nerves 2-12 grossly intact. No signs of infection. No hematoma. No seroma. Drains are ready becoming serosanguineous. Respiratory unlabored. No calf tenderness. Negative Homans. Objective Data Vital Signs Vital Signs: Vital Signs - 24 hr 06/19/21 12:05 06/19/21 12:20 06/19/21 12:35 Temperature 36.8 C Pulse Rate 97 87 88 Respiratory Rate 12 12 12 Blood Pressure 145/86 H 131/71 142/79 H Pulse Oximetry 97 99 99 06/19/21 12:50 06/19/21 13:05 06/19/21 13:15 Temperature Pulse Rate 88 89 95 Respiratory Rate 19 14 12 Blood Pressure 146/65 H 131/67 135/67 Pulse Oximetry 93 99 100 06/19/21 13:45 06/19/21 17:00 06/19/21 18:30 Temperature 36.9 C 36.3 C L 36.3 C L Pulse Rate 75 71 79 Respiratory Rate 18 18 18 Blood Pressure 113/64 125/59 L 138/71 Pulse Oximetry 100 100 06/20/21 00:15 06/20/21 04:30 Temperature 36.5 C 36.8 C Pulse Rate 59 L 68 Respiratory Rate 18 18 Blood Pressure 138/58 L 122/64 Pulse Oximetry 100 98 Intake/Output Intake/Output: Intake & Output 06/17/21 06/18/21 06/19/21 06/20/21 23:59 23:59 23:59 23:59 Intake Total 1650 Output Total 500 Balance 1150 Meds/Results Medications: Active Medications Generic Name Dose Route Start Last Admin Trade Name Freq PRN Reason Stop Dose Admin Hydrocodone Bitart/Acetaminophen 1 tab 06/19/21 13:17 Hydrocodone/Acetaminophen (*Crx) 5-325 Mg Tablet PO Q6H PRN Pain Rated 4-6 Bupropion HCl 300 mg 06/20/21 09:00 Bupropion Hcl Xl (24 Hr) 150 Mg Tabcr PO DAILY POLLO Diazepam 5 mg 06/19/21 12:08 06/19/21 22:29 Diazepam (*Crx) 5 Mg Tablet PO 5 mg BID PRN Administration Anxiety Docusate Sodium 100 mg 06/19/21 21:00 06/19/21 22:36 Docusate Sodium 100 Mg Capsule PO Not Given Q12HR [facility] Enoxaparin Sodium 40 mg 06/19/21 19:00 06/19/21 18:54 Enoxaparin 40 Mg/0.4 Ml Syringe SUB-Q Not Given Q24H [facility] Fentanyl Citrate 25 mcg 06/19/21 12:22 Fentanyl Citrate Inj (*Crx) 100 Mcg/2 Ml Vial IV PUSH Q2M PRN Pain Fluoxetine HCl 20 mg 06/20/21 09:00 Fluoxetine Hcl 20 Mg Capsule PO DAILY [facility] Fluticasone Propionate 1 spray 06/20/21 09:00 Fluticasone Propionate 0.05% Na Spr 16 Gm Btl (*Bkc) NASAL DAILY POLLO Lactated Ringer's 1,000 mls @ 30 mls/hr 06/18/21 13:40 06/19/21 21:03 Lr - Lactated Ringers Iv IV CONT Not Given .Q24H POLLO Lactated Ringer's 1,000 mls @ 30 mls/hr 06/19/21 12:25 06/19/21 13:16 Lr - Lactated Ringers Iv IV CONT Infused .Q24H POLLO Infusion Latanoprost 1 drop 06/20/21 09:00 Latanoprost 0.005% Op Soln 2.5 Ml Btl EACH EYE DAILY POLLO Morphine Sulfate 2 mg 06/19/21 12:08 06/19/21 22:29 Morphine Sulfate (*Crx) 2 Mg/Ml Inj IV PUSH 2 mg Q2H PRN Ad
--- NOTE | 2021-06-20 06:50 | P.DS_ITS ---
DS: Admitting Diagnosis Discharge Date 06/20/2021 Admitting Diagnosis Skin laxity DS: Discharge Diagnosis Discharge Diagnosis (1) Encounter for cosmetic surgery: Code(s): Z41.1 - Encounter for cosmetic surgery Status: Acute DS: Summary Hospital Course Hospital Course: She underwent face / neck lift with facial fat grafting. Postoperatively has done very well. Will discharge home. Time Spent with Patient Time attestation: Total time spent providing and/or coordinating discharge services: 25 minutes Exam Narrative: Alert and oriented no obvious distress Cranial nerves 2-12 grossly intact. No signs of infection. No hematoma. No seroma. Drains are ready becoming serosanguineous. Respiratory unlabored. No calf tenderness. Negative Homans. DS: Data Data Completed and Pending Labs on day of discharge: Labs from last 24 hours 06/19/21 06:30 Cotinine Negative Discharge Plan Discharge Patient Disposition: Home, Self-Care Discharge Instructions: POST OPERATIVE DISCHARGE INSTRUCTIONS FOR JALEN CHRISTOPHER M.D. [facility] PLASTIC SURGERY [facility] [facility] [address] [address] [place] [address] * No driving for 24 hours after anesthesia and while you are taking pain medication. * Take all prescribed medication as directed * Diet as tolerated. * No lifting or activity that raises blood pressure for 48 hours. * Regular walking / ambulation. * No showering until directed to. Once you shower do not take pain medication before showering as the combination of medication and heat may cause you to feel dizzy or pass out. * No pools or tubs for 2 weeks. * Call with any questions or concerns. * Dressing Care: May wash with soap and water. Keep drain sites clean. If you have any questions or concerns, please call the office . If it is after hours you will be directed to the reimbursement consultant exchange. Shortness of breath, chest pain, or other medical emergency dial 911 / proceed to the Emergency Room. Patient Instructions: [facility] (GEN) Stand Alone Forms: General Discharge Instructions Follow-up/Referrals: Jalen Christopher MD [Physician] - Other (Friday06/25/2021) Discharge Medications: Continued ondansetron HCl [Zofran] 4 mg tablet 4 mg PO Q8H Qty: 21 RF: 0 hydrocodone-acetaminophen 5-325 mg tablet 1 tablet PO Q6H PRN (Reason: pain) Qty: 15 RF: 0 diazepam [Valium] 5 mg tablet 5 mg PO TID PRN (Reason: anxiety) Qty: 15 RF: 0 multivitamin [Daily Multiple] Tablet 1 tablet PO DAILY RF: 0 fluoxetine 20 mg Tablet 20 mg PO DAILY RF: 0 bupropion HCl 300 mg Tablet Extended Release 24 Hr 300 mg PO DAILY RF: 0 Calcium 600 + D(3) 600 mg calcium- 200 unit Capsule 1 cap PO DAILY RF: 0 latanoprost 0.005 % Drops 1 drp OPHTHALMIC (EYE) DAILY RF: 0 polyethylene glycol 3350 [Miralax] 17 gram Powder In Packet 17 g PO QAM Qty: 30 RF: 0 sennosides-docusate sodium [Senokot-S] 8.6-50 mg Tablet 1 tab PO HS Qty: 60 RF: 0 omeprazole 20 mg Capsule,Delayed Release(Dr/Ec) 20 mg PO DAILY RF: 0 fluticasone propionate 50 mcg/actuation Makinen,Suspension 1 spray INTRANASAL DAILY RF: 0
[2021-06-20] MEDS: DOCUSATE SODIUM 100 MG CAPSULE PO (07:32)
[2021-06-20] MEDS: FLUTICASONE PROPIONATE 0.05% NA SPR 16 GM BTL (*BKC) 1 SPRAY NASAL (07:34)
[2021-06-20] MEDS: polyethylene glycoL 3350 17 GM POWD.PACK PO (07:37)
[2021-06-20] MEDS: diazePAM (*CRX) 5 MG TABLET PO (07:38)
[2021-06-20 08:40] VITALS: BP 129/62; PULSE 82; RESP 16; TEMP 36.6; O2SAT 96
[2021-06-20] MEDS: CALCIUM CARBONATE (TUMS) 500 MG (200 MG ELEMENTAL) PO (09:19)
--- NOTE | 2021-06-20 15:24 | PC.NURSE ---
[address] herself home. This RN stated that she could not due to taking narcotics. She V/U'd. 1318 The UA walked pt out to the car. She reminded her that she could not drive herself home, and that she (the UA) needed to see her get into this car with her driving and the car leaving the parking lot. She V/U'd.
== END 2021-06-20 13:18 | disposition home or self-care (01) ==
LOC: ANHSURGERY 12:08 → ANHOB2 13:44
PROVIDERS: PCP Internal Medicine; Visit Provider Surgery Plastic and Reconstructive Surgery
PROC: (CPT 15824; principal; 2021-06-19 07:30)
DX: Z41.1 Encounter for cosmetic surgery (principal); L57.4 Cutis laxa senilis; K21.9 Gastro-esophageal reflux disease without esophagitis; H40.9 Unspecified glaucoma; F41.8 Other specified anxiety disorders; Z79.899 Other long term (current) drug therapy; Z87.891 Personal history of nicotine dependence
CPT/HCPCS: 15773; 15774; 15828; 80307; 99199; A9270; J0171; J0690; J1100; J1170; J2250; J2270; J2405; J2704; J2710; J3010; J7030; J7120

== ENCOUNTER 2022-07-18 22:20 | Emergency (ER) | payer SELFPAY ==
--- NOTE | ~2022-07-18 | XR_ITS ---
EXAMINATION: XR chest 2V DATE: 07/18/2022 22:59 INDICATION: Shortness of breath. TECHNIQUE: Frontal and lateral views of the chest were obtained. COMPARISON: Chest 2 views 09/20/2019 FINDINGS: There is mild scarring at the lung apices. No pleural effusion or pneumothorax. There is mi ld atelectasis at left lung base. The heart size is normal. IMPRESSION: 1. Mild scarring at the lung apices and mild atelectasis at left lung base. Reviewed, dictated and finalized at location A. ULATING MACHINE MECHANIC
[2022-07-18 22:23] VITALS: BP 143/72; PULSE 98; RESP 30; TEMP 36.2; O2SAT 100
--- NOTE | 2022-07-19 00:04 | PC.NURSE ---
Pt requesting to leave states I just want to go home im no longer short of breath. pt advised to stay to be seen by ERP and given information on risks and benefits including risk of dying. Pt aware and would like to leave. ERP and supercharge repair supervisor aware.
== END 2022-07-19 00:04 | disposition left against medical advice (07) ==
PROVIDERS: Emergency Provider Emergency Medicine; PCP Internal Medicine
DX: R06.9 Unspecified abnormalities of breathing (principal)
CPT/HCPCS: 71046; 99199

== ENCOUNTER 2022-10-14 12:41 | Emergency (ER) | payer OTHER, SELFPAY ==
--- NOTE | ~2022-10-14 | XR_ITS ---
EXAMINATION: XR shoulder LT min 2V DATE: 10/14/2022 13:05 INDICATION: Left shoulder injury. TECHNIQUE: 3 views of left shoulder were obtained. COMPARISON: None. FINDINGS: There is a comminuted fracture of proximal left humerus involving the greater tuberosity an d surgical neck. The main distal fracture fragment demonstrates impaction. At the greater tuberosity, there is 3 mm displacement. There is moderate osteoarthritis of glenohumeral joint and mild osteoart hritis of acromioclavicular joint. IMPRESSION: 1. Comminuted fracture of proximal left humerus. 2. Polyarticular osteoarthritis. Reviewed, dictated and finalized at location A. ANICAL SPREADER OPERATOR
--- NOTE | ~2022-10-14 | XR_ITS ---
EXAMINATION: XR humerus LT DATE: 10/14/2022 13:05 INDICATION: Left upper arm injury. TECHNIQUE: 2 views of left humerus were obtained. COMPARISON: None. FINDINGS: There is a fracture of proximal humerus involving the surgical neck and greater tuberosity. The main distal fracture fragment demonstrates impaction. At the greater tuberosity, there is 3 mm d isplacement. There is moderate osteoarthritis of glenohumeral joint and mild osteoarthritis of acromi oclavicular joint. IMPRESSION: 1. Comminuted fracture of proximal left humerus. 2. Polyarticular osteoarthritis. Reviewed, dictated and finalized at location A. ULAR SURGEON
--- NOTE | 2022-10-14 12:46 | ED.UPPEXIN ---
HPI - Extremity Injury (Upper) General Chief Complaint: Extremity Injury, Upper Stated Complaint: lt arm injury Time Seen by Provider: 10/14/22 12:55 Source: patient Mode of arrival: ambulatory Limitations: no limitations History of Present Illness HPI narrative: Adele is a 61-year-old female patient presenting to the clinic today with complaints of left upper arm pain after falling today. She reports that she fell on the roadway when she was walking. States that she tripped over her own feet and landed on the left side. Has pain to the left upper arm/shoulder. Is having difficulty with movement of the shoulder/upper arm due to pain. Related Data Home Medications Medication Instructions Recorded Confirmed bupropion HCl 300 mg 24 hr tablet, 300 mg PO DAILY 09/20/19 06/19/21 extended release calcium carbonate 600 mg-vitamin 1 cap PO DAILY 09/20/19 06/19/21 D3 5 mcg (200 unit) capsule (Calcium 600 + D(3)) fluoxetine 20 mg tablet 20 mg PO DAILY 09/20/19 06/19/21 latanoprost 0.005 % eye drops 1 drp ophthalmic (eye) DAILY 09/20/19 06/19/21 multivitamin (Daily Multiple 1 tablet PO DAILY 09/20/19 06/19/21 tablet) fluticasone propionate 50 1 spray intranasal DAILY 06/12/21 06/19/21 mcg/actuation nasal spray,suspension omeprazole 20 mg capsule,delayed 20 mg PO DAILY 06/12/21 06/19/21 release Allergies Allergy/AdvReac Type Severity Reaction Status Date / Time No Known Allergies Allergy Verified 07/30/21 15:03 [facility] Past Medical History Medical History Depression with anxiety GERD (gastroesophageal reflux disease) Glaucoma Osteoarthritis Surgical History Surgical History Status post right foot surgery Status post total replacement of both hips Family History Family History Father Melanoma Mother Arrhythmia Social History Social History Social History: Patient lives in [place] with her , whom she designates as her surrogate decision maker. 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 She smoked up to a pack of cigarettes per day and quit 7 years ago. She drinks alcohol socially and in moderation. No drug use. Smoking packs per day: 1 Smoking cigarettes per day: 20.0 Years smoked: 20 Smoking pack-years: 20.00 Smoking status: Former smoker Smoking end date: 09/08/10 Alcohol intake: current Drinks per week: 4 Alcohol use details: 2 BOTTLES OF WINE/WEEK IN SUMMER Substance use: never Substance use type: does not use Living arrangements: with family Gender identity (if verbalized by the patient): Female Spiritual care concerns: No Agree to blood products: Yes Comments At the time of my signature, I reviewed and agree with the nursing past medical, surgical, social, and family history. There is no relevant family history pertinent to the patient complaint. Exam Narrative: General: Well-developed, well nourished, in no apparent distress Head: Normocephalic, atraumatic. Cardio: Regular rate and rhythm, s1 and s2 normal, no murmur appreciated. Resp: Clear to auscultation bilaterally, no rhonchi, rales, wheezing or rubs. Musculoskeletal: No deformity, tender to palpation over the proximal humerus and of the left shoulder joint, severe pain with any attempt at range of motion of the left shoulder/humerus, and grasp equal and strong, peripheral pulses strong, no edema, no cyanosis, skin temp equal bilaterally, normal gait and station Course Course Emergency Course: Portions of this record may have been created with voice recognition software. Level of Care: Express Care Visit Vital Signs Vital signs: Vital Signs Temperature 36.3 C L 10/14/22 12:53 Pulse Rate 78 10/14/22 12:53 Respiratory Rate 16
[2022-10-14 12:53] VITALS: BP 127/79; PULSE 78; RESP 16; TEMP 36.3; O2SAT 100
--- NOTE | 2022-10-14 13:21 | PC.NURSE ---
1318-- Dr Ahuja is on-call ortho today, and contacted his office, who states that we can page him since he is over in the OR currently. BRATTICE BUILDER paged his pager. Pt notified of attempts to get her follow up care.
== END 2022-10-14 13:50 | disposition home or self-care (01) ==
PROVIDERS: Emergency Provider Nurse Practitioner Family; PCP Internal Medicine
DX: S42.292A Other displaced fracture of upper end of left humerus, initial encounter for closed fracture (principal); W01.0XXA Fall on same level from slipping, tripping and stumbling without subsequent striking against object, initial encounter; Z87.891 Personal history of nicotine dependence; K21.9 Gastro-esophageal reflux disease without esophagitis; H40.9 Unspecified glaucoma; M19.90 Unspecified osteoarthritis, unspecified site; F41.8 Other specified anxiety disorders
CPT/HCPCS: 73030; 73060; 99214; A4565; G0463